=== PATIENT | female | born 1985 | race Caucasian/White ===

== ENCOUNTER → 2018-01-09 12:30 | Outpatient (CLI) | payer OTHER, SELFPAY | PROVIDERS: Family Provider Family Medicine; PCP Family Medicine; Visit Provider Physician Assistant Surgical | DX: J02.9 Acute pharyngitis, unspecified (principal) | CPT/HCPCS: 87081 ==

== ENCOUNTER → 2018-04-16 16:16 | Outpatient (CLI) | payer OTHER, SELFPAY ==
[2018-04-16 18:06] LABS: Thyroid Stim Hormone (TSH) 0.67 uIU/mL (0.358-3.74)
== END ==
LOC: BFHLAB 16:17
PROVIDERS: Family Provider Family Medicine; PCP Family Medicine; Visit Provider Orthopaedic Surgery
DX: R53.83 Other fatigue (principal)
CPT/HCPCS: 36415; 84443

== ENCOUNTER → 2018-05-07 08:02 | Outpatient (CLI) | payer OTHER, SELFPAY ==
[2018-05-07 12:41] LABS: Hemoglobin A1c 4.9 % (4.2-6.3)
[2018-05-07 12:45] LABS: AST(SGOT) 20 U/L (15-37); Alanine Aminotransfer ALT/SGPT 37 U/L (13-56); Albumin, Serum 3.3 g/dL (3.2-5.0); Alkaline Phosphatase 70 U/L (45-117); Anion Gap 7 (5-15); BUN 9 mg/dL (7-18); BUN/Creat Ratio 12.3 RATIO (10-20); Calcium,Total 8.3 mg/dL (8.5-10.1); Chloride 105 mmol/L (98-107); Cholesterol 167 mg/dL (200); Creatinine, Serum 0.73 mg/dL (0.55-1.02); EST Glomerular Filtration Rate 96 mL/min (>60); Est Glom Filt Rate - Afr Amer 116 mL/min (>60); Free T3 3.1 pg/mL (2.18-3.98); Globulin 3.4 g/dL (2.2-4.2); Glucose 95 mg/dL (74-106); High Density Lipoprotein 51 mg/dL; Potassium 3.8 mmol/L (3.5-5.1); Protein, Total 6.7 g/dL (6.4-8.2); Sodium Level 138 mmol/L (136-145); T4 Free Direct 1.98 ng/dL (0.76-1.46); Thyroid Stim Hormone (TSH) 0.81 uIU/mL (0.358-3.74); Triglycerides 125 mg/dL; Very Low Density Lipoprotein 25 mg/dL (5-40)
[2018-05-08 08:32] LABS: Insulin 23.8 mU/L (2.6-37.6); Vitamin B12 378 pg/mL (211-911); Vitamin D,25 Hydroxy 16.8 ng/mL (29.95-100.01)
[2018-05-11 14:07] LABS: Testosterone, % Free 3.96 % (0.50-2.80); Testosterone, Total 53 ng/dL (8-48)
[2018-05-12 10:28] LABS: DHEA Sulfate 208.2 ug/dL (57.3-279.2)
== END ==
LOC: BFHLAB 08:03
PROVIDERS: Family Provider Family Medicine; PCP Family Medicine; Visit Provider Family Medicine
DX: R53.83 Other fatigue (principal); R51 Headache; D68.51 Activated protein C resistance; R63.5 Abnormal weight gain; R73.9 Hyperglycemia, unspecified
CPT/HCPCS: 36415; 80053; 80061; 82306; 82533; 82607; 82627; 83036; 83525; 84402; 84403; 84439; 84443; 84481; 82626

== ENCOUNTER → 2018-06-02 11:14 | Outpatient (CLI) | payer OTHER, SELFPAY ==
[2018-06-02 15:38] LABS: Estradiol 70.4 pg/mL; Ferritin 69 ng/mL (8-252); Iron 93 ug/dL (50-170)
[2018-06-02 15:55] LABS: Hematocrit 40.2 % (37-47); Hemoglobin 13.1 g/dl (12.0-15.0); Red Blood Count 4.33 M/mm3 (4.2-5.4); White Blood Count 6.2 K/mm3 (4.4-11.0)
[2018-06-02 15:56] LABS: Absolute Lymphocyte Count 2.61 X10^3/ul (0.83-4.51); Basophil% 0.8 % (0-1); Eosinophil# 0.15 X10^3/uL; Eosinophils% 2.4 % (0-5); Lymphocyte # 2.61 X10^3/ul (4.0); Lymphocyte % 42.3 % (19-41); Mean Corp Hgb Conc 32.6 g/gl (32-36); Mean Corpuscular Hgb 30.3 pg (27.0-32.0); Mean Corpuscular Volume 92.8 fL (81-99); Mean Platelet Vol. 10.7 fl (6.2-12.0); Monocyte# 0.37 X10^3/uL; Neutrophil # 2.99 X10^3/uL (2.7-7.7); Neutrophil % 48.5 % (47-70); POSITIVE COUNT NO; POSITIVE DIFFERENTIAL NO; POSITIVE MORPHOLOGY NO; Platelet Count 290 K/mm3 (150-450); RBC Distribution Width CV 12.5 % (11.6-14.6); RBC Distribution Width SD 42.6 fl (35.1-43.9)
[2018-06-02 15:57] LABS: Basophil# 0.05 X10^3/uL
[2018-06-03 12:16] LABS: Progesterone Level 0.69 ng/mL (See Comment)
== END ==
LOC: LAB.FUTURE 11:16
PROVIDERS: Family Provider Family Medicine; PCP Family Medicine; Visit Provider Family Medicine
DX: N92.0 Excessive and frequent menstruation with regular cycle (principal); E28.2 Polycystic ovarian syndrome; D64.9 Anemia, unspecified
CPT/HCPCS: 36415; 82670; 82728; 83540; 84144; 85025

== ENCOUNTER → 2018-10-19 16:08 | Outpatient (CLI) | payer OTHER, SELFPAY ==
[2018-10-19 18:26] LABS: Calcium,Total 8.8 mg/dL (8.5-10.1)
== END ==
LOC: BFHLAB 16:10
PROVIDERS: Family Provider Family Medicine; PCP Family Medicine; Visit Provider Podiatrist Foot & Ankle Surgery
DX: S92.344A Nondisplaced fracture of fourth metatarsal bone, right foot, initial encounter for closed fracture (principal); E55.9 Vitamin D deficiency, unspecified
CPT/HCPCS: 36415; 82306; 82310

== ENCOUNTER → 2019-06-18 15:19 | Outpatient (CLI) | payer SELFPAY ==
[2018-12-10 08:00] VITALS: BMI 35.6
--- NOTE | 2019-06-18 15:26 | VDLE_ITS ---
Reason For Study: RT CALF PAIN RIGHT GSV is normal. CFV is compressible, spontaneous, phasic, competent and demonstrates normal augmentation. FV is compressible, spontaneous, phasic, competent and demonstrates normal augmentation. POP V is compressible, spontaneous, phasic, competent and demonstrates normal augmentation. T/P Trunk is compressible. PTV is compressible. RT PerV is compressible. Procedure Exam performed in department. A preliminary report was called and/or faxed to Dr Jama. Interpretation Summary Deep veins of the right lower extremity are patent and compressible segmentally. There is no evidence of right lower extremity deep vein thrombosis. Valvular competence appears intact within the proximal deep venous system on the right . The right great saphenous vein appears patent and compressible segmentally. Ordering Physician: Beronica Jama Referring Physician: KEVIN LANDERS Performed By: Annie Steven, MARYJANE, RVT
== END ==
LOC: CVS 15:23
PROVIDERS: Family Provider Family Medicine; PCP Family Medicine; Referring Provider Internal Medicine; Visit Provider Internal Medicine
DX: M79.661 Pain in right lower leg (principal)
CPT/HCPCS: 93971

== ENCOUNTER 2020-10-10 08:00 | Outpatient (RCR) | payer BC, SELFPAY ==
[2020-02-04 15:11] VITALS: BMI 31.1
== END 2020-10-10 23:59 ==
LOC: IMMUN 08:00
PROVIDERS: PCP Family Medicine; Visit Provider Family Medicine
DX: Z23 Encounter for immunization (principal)
CPT/HCPCS: 0011A; 0012A

== ENCOUNTER → 2021-01-16 09:45 | Outpatient (CLI) | payer BC, SELFPAY ==
[2020-02-04 15:11] VITALS: BMI 31.1
--- NOTE | 2021-01-16 09:48 | US_ITS ---
STUDY: THYROID ULTRASOUND REASON FOR EXAM: Female, 35 years old. ABN SERUM THYROXINE TECHNIQUE: Ultrasound evaluation of the thyroid was performed with real-time and static santiago-scale imaging. COMPARISON: None. FINDINGS: RIGHT LOBE: The right lobe of the thyroid gland is enlarged and measures 6 cm x 2.3 cm x 1.6 cm. There is a homogeneous echotexture. There is a 2 cm x 1.8 cm x 1.5 cm solid nodule in the lower pole. Intranodular vascularity is seen. Biopsy is recommended. LEFT LOBE: The left lobe of the thyroid gland is enlarged and measures 5.7 cm x 1.9 cm x 1.8 cm. There is a homogeneous echotexture. Normal small hypoechoic solid nodules scattered throughout the left lobe. The larger measures 5 mm x 4 mm x 3 mm. ISTHMUS: The isthmus measures 4 mm. The regional lymph nodes are normal. US/Thyroid IMPRESSION: Enlargement of the thyroid gland more prominent on the right side. There is a dominant 2 cm x 1.8cm x 1.5 cm solid nodule in the lower pole of the right lobe. Biopsy is recommended. Electronically Signed: Iván Pruitt MD at 13:29 EDT , Service support ,
== END ==
PROVIDERS: PCP Family Medicine; Referring Provider Nurse Practitioner; Visit Provider Nurse Practitioner
DX: E04.1 Nontoxic single thyroid nodule (principal)
CPT/HCPCS: 76536

== ENCOUNTER → 2021-01-29 | Outpatient (CLI) | payer BC, SELFPAY ==
[2020-02-04 15:11] VITALS: BMI 31.1
--- NOTE | 2021-01-29 | ASPS_PTH ---
PATIENT: JUANY FULLER LOC: [facility] U#:[id number] AGE/SX: 35/F ROOM: RE01/29/[address]: Dr. Jon Lema MD : 1985 BED: DIS: 01/29/2021 SPEC #: [id number] RECD: 01/29/21 13:19 STATUS: SABRINA RECarrie #: [id number] PETRONA: 01/29/21 00:[address]: Jon Lema DEPT: CYTOLOGY RECD BY: Gianni Heart ENTERED: 01/29/21 13:19 SP TYPE: ASPIRATION OTHR DR: Kole Bingham Tissues: Thyroid gland, NOS Procedures: Special Stain Group II Cytology Other HEADER OPERATION: Ultrasound-guided right thyroid fine needle aspiration PRE-OP DIAGNOSIS: Thyroid nodule TISSUE SUBMITTED: Right thyroid FNA slides x12 DIAGNOSIS CYTOLOGY Right thyroid nodule, ultrasound-guided FNA (smears): Suspicious for follicular neoplasm. Adequate for evaluation. See comment. SJ:johanne 01/30/2021 COMMENT The smears are cellular and shows microfollicle formation. Correlation with clinical, radiologic findings and appropriate follow up are necessary. CYTOLOGY STUDY Slides are reviewed. CYTOLOGY GROSS Received are 12 smears labeled with the patient's name and designated per the requisition as right thyroid. Submitted for staining. / johanne 01/29/2021 TC:5 CPT: 17041
== END | disposition home or self-care (01) ==
LOC: LAB 12:38 → LABSPEC 12:39
PROVIDERS: PCP Family Medicine; Referring Provider Surgery; Visit Provider Surgery
DX: E04.1 Nontoxic single thyroid nodule (principal)
CPT/HCPCS: 88161; 88313

== ENCOUNTER 2021-03-16 12:26 | Day surgery (SDC) | payer BC, SELFPAY ==
[2020-02-04 15:11] VITALS: BMI 31.1
--- NOTE | 2021-03-08 15:21 | NURSING ---
Attempting to contact pt via phone for PAT phone call appt. Cell phone listed is no longer a working number. Work phone listed: work place states pt doen't work there any more. This RN contacted Antonella at Dr Lema's office who states she will reach out to pt's emergency contact. Antonella states she will notify PAT with what she discovers.
[2021-03-16] VITALS (10 sets, daily range): BP systolic 109–126; BP diastolic 61–97; PULSE 55–83; RESP 16–65; TEMP 36–36.6; O2SAT 97–100; BMI 33.9
--- NOTE | 2021-03-16 | THYROID_PTH ---
PATIENT: JUANY FULLER LOC: [facility] [place] U#:[id number] AGE/SX: 35/F ROOM: RE03/16/[address]: Dr. Jon Lema MD : 1985 BED: DIS: 03/17/2021 SPEC #: [id number] RECD: 03/19/21 07:28 STATUS: SABRINA RECarrie #: [id number] PETRONA: 03/16/21 00:[address]: Jon Lema DEPT: SURGICAL PATHOLOGY RECD BY: Gianni Heart ENTERED: 03/19/21 08:07 SP TYPE: THYROID OTHR DR: Dr. 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 Multinodular goiter. See comment. SJ:johanne 03/20/2021 COMMENT The tumor shows well-defined capsule. Invasion into the capsule is noted, however, invasion through the capsule is not seen. Immunohistochemistry ([id number]) supports the above diagnosis. Please make reference to previous specimen ([id number]), right thyroid nodule, ultrasound-guided FNA with diagnosis of ?suspicious for follicular neoplasm.? Case has been reviewed in consultation with Dr. Acosta who concurs with the above diagnosis. IDC:AM MICROSCOPIC DESCRIPTION Slides are reviewed. GROSS DESCRIPTION Received in fixative is one container labeled with the patient's name and designated thyroid. The specimen consists of a total thyroidectomy specimen weighing 26.7 gm. The right thyroid lobe measures 5.5 x 2.5 x 3 cm and left thyroid lobe measures 5 x 2 x 2 cm and the isthmus measures 1.5 x 0.5 x 0.5 cm. No external parathyroid tissue is identified. The specimen is inked as follows: posterior surface right lobe, left lobe and isthmus - black, anterior surface right lobe - blue, anterior surface left lobe - green, anterior surface isthmus - yellow. Serial sections reveal a circumscribed, encapsulated hernandez-white nodule in the lower portion of the thyroid lobe measuring 1.5 cm in diameter. Sections of the left lobe and isthmus do not reveal any obvious mass lesion. Set Up Operator Tool sections are submitted in 15 cassettes as follows: 1 - isthmus, entirely submitted, 2-9 - right lobe (2 containing most superior portion and 9 containing most inferior portion, 6-9 contains the nodule with surrounding uninvolved thyroid tissue, nodule is submitted in entirety), 10-15 - left lobe (10 containing most superior portion and 15 containing most inferior portion). / SJ:johanne 03/19/21 TC:1 CPT: 83119
--- NOTE | 2021-03-16 | IMM_PTH ---
PATIENT: JUANY FULLER [place] [facility] [id number] AGE/SX: 35/F ROOM: RE03/16/[address]: Dr. Jon Lema MD : 1985 BED: DIS: 03/17/2021 SPEC #: [id number] RECD: 03/20/21 13:27 STATUS: SABRINA RECarrie #: [id number] PETRONA: 03/16/21 00:[address]: Jon Lema DEPT: IMMUNOHISTOCHEMISTRY RECD BY: Fabiana Gillespie ENTERED: 03/20/21 13:28 SP TYPE: IMMUNO OTHR DR: Dr. Beronica Jama, Tissues: Thyroid gland, NOS Procedures: HBME (initial) CD56 (add) CK19 (add) GAL-3 (add) PHYSICIAN & INSTITUTION [place] [id number] SPECIMEN INFORMATION: Tissue Source: Thyroid, total thyroidectomy Clinical Info: Multinodular goiter, hyperthyroidism Specimen Number: [id number] #7 CPT code: 12713, 45463 x3 METHODOLOGY: Deparaffinized sections of prefer/formalin-fixed tissue or PAP/DQ stained slides are incubated with monoclonal/polyclonal antibodies/oligonucleotide probes. Localization is made via biotin free immunoperoxidase method. Appropriate controls are performed and reacted as expected. Results on target cell population are indicated in the following table: RESULTS: ANTIBODY / CLONE RESULT Block 7 HBME1 (HBME-1) positive CK19 (A53-B/A2.26) positive, focal GAL3 (9C4) negative CD56 (123C3.D5) positive, focal These tests were developed and their performance characteristics determined by [facility]. They may not have been cleared or approved by the U.S. Food and Drug Administration. The FDA has determined that such clearance or approval is not necessary. The above immunohistochemical/dualISH markers are ordered and reviewed by the Pathologist. INTERPRETATION: Thyroid, total thyroidectomy: Consistent with encapsulated follicular adenoma. SJ:johanne 03/21/2021 Case has been reviewed in consultation with Dr. Acosta who concurs with the above diagnosis. IDC:[email or web address]
[2021-03-16 12:48] LABS: Internal QC Validated? YES +Cl - CLEAR BKGD
[2021-03-16 12:51] LABS: Pregnancy, Urine Negative Negative
[2021-03-16] MEDS: Lactated Ringers 1,000 ML 100 ML IV ×2 (13:32→15:45)
[2021-03-16 13:44] LABS: Hematocrit 42.8 % (37-47); Hemoglobin 14.3 g/dL (12.0-15.0); Mean Corp Hgb Conc 33.4 g/dL (32-36); Mean Corpuscular Hgb 31.1 pg (27.0-32.0); Mean Platelet Vol. 10.3 fl (6.2-12.0); Platelet Count 337 K/mm3 (150-450); RBC Distribution Width CV 12.2 % (11.6-14.6); White Blood Count 10.2 K/mm3 (4.4-11.0)
[2021-03-16 13:52] LABS: Partial Thromboplast Time 25.1 Seconds (24.1-36.2)
[2021-03-16 13:58] LABS: AST(SGOT) 15 U/L (15-37); Alanine Aminotransfer ALT/SGPT 28 U/L (13-56); Albumin, Serum 3.5 g/dL (3.2-5.0); Alkaline Phosphatase 86 U/L (45-117); Bilirubin, Direct 0.18 mg/dL (0.00-0.30); Globulin 3.1 g/dL (2.2-4.2); Protein, Total 6.6 g/dL (6.4-8.2)
[2021-03-16] MEDS: Cefazolin 2 GM in 0.9% Normal Saline 100 ML IV (14:17)
[2021-03-16] MEDS: BUPIVACAINE LIPOSOME/PF 20 ML VIAL OPERA.SITE (15:34)
--- NOTE | 2021-03-16 15:34 | OP.PCM_ITS ---
Problems Associated Problem List Diagnoses (1) Multinodular goiter (nontoxic): (2) Hyperthyroidism: Report of Operation Date of Procedure: 03/16/21 Pre-Operative Diagnosis: 1. Multinodular goiter 2. Hyperthyroidism Post-Operative Diagnosis: Same Surgery/Procedure Performed:: Total thyroidectomy Surgeon: Jon Lmea regional branch manager: Sylvester Mckeon Type of Anesthesia: General Anesthesiologist: Irvin Maddox Specimen's removed: Total thyroid Estimated Blood Loss (mL): < 25 cc Description of Procedure: Patient was brought in the operating room. Placed in the supine position. Under excellent general tracheal ovation the neck was s terilely prepped and draped in usual fashion. Local was injected. Cervical incision was made. Dissection was carried down with electrocautery. Subplatysmal flaps were created with use of electrocautery. Gelpi retractor was placed inside the wound. Midline strap muscles were opened up. I dissected down I started on the left side going to the superior pole vessels first I took these down with her mono dissector came to the middle thyroidal vein took this down with a demonic dissector and finally the inferior parathyroid vessels with the harmonic dissector. I rotated the gland from lateral to medial standpoint to identify both the superior and inferior parathyroid gland was able to spare them without difficulty. Took the gland off of Novak's ligaments and identified the recurrent laryngeal nerve on the left side. As I rotated the gland off of the trachea and going to the right side I once again went superiorly into the superior pole vessels down middle thyroidal vein down and then inferiorly on the inferior thyroid vessels I was able to identify the inferior and superior parathyroid glands and spared both of them. I rotated the gland from a lateral medial standpoint once again identified the recurrent laryngeal nerve this time it was very small and very close to the gland but I was able to remove the thyroid without injury. I took the gland off the various ligaments I inspected it I did not see any tissue that look like parathyroid tissue I reinspected my parathyroid they all look like they had good blood supply. I placed FloSeal into the operating bed. Midline strap muscles were brought together with a 2-0 Vicryl deep dermal stitches of 3-0 Vicryl in a running 4-0 Monocryl. Dermabond was applied sterile dressings were applied and the patient tolerated the p rocedure well. Admit VTE Documentation VTE Present on Admission: No VTE Mechan Device Prophylaxis: SCD's VTE Pharm Prophylaxis ordered?: No Reason prophylaxis not ordered:: Treatment Not Indicated
[2021-03-16] MEDS: 0.9% Normal Saline 1,000 ML 70 ML IV (17:03)
[2021-03-16] MEDS: Calcium Carbonate 500 MG Tablet 1000 MG PO (18:29)
[2021-03-16 18:43] LABS: Calcium,Total 8.4 mg/dL (8.5-10.1)
[2021-03-16] MEDS: oxyCODONE 5 MG Tablet PO (20:19)
[2021-03-16] MEDS: Propranolol 10 MG Tablet PO (22:14)
[2021-03-16 22:42] LABS: Calcium,Total 8.6 mg/dL (8.5-10.1)
[2021-03-17] MEDS: oxyCODONE 5 MG Tablet PO ×3 (01:43→11:45)
[2021-03-17 01:46] VITALS: BP 110/73; PULSE 63; RESP 16; TEMP 36.3; O2SAT 97
[2021-03-17 05:38] VITALS: BP 108/71; PULSE 58; RESP 16; TEMP 36.6; O2SAT 97
[2021-03-17] MEDS: 0.9% Normal Saline 1,000 ML 70 ML IV (05:51)
[2021-03-17] MEDS: Levothyroxine 100 MCG Tablet PO (05:52)
[2021-03-17 06:50] VITALS: BP 121/61; PULSE 56
[2021-03-17 07:14] LABS: Calcium,Total 8.6 mg/dL (8.5-10.1)
[2021-03-17] MEDS: Calcium Carbonate 500 MG Tablet 1000 MG PO ×2 (07:40→11:25)
[2021-03-17] MEDS: DULoxetine Hcl 30 MG Capsule PO (09:19)
[2021-03-17] MEDS: Loratadine 10 MG Tablet PO (09:20)
[2021-03-17] MEDS: Propranolol 10 MG Tablet PO (09:20)
--- NOTE | 2021-03-17 10:53 | PCM.PN.SRG ---
Subjective Subjective Pain is well controlled. Swallowing without difficulty. Objective Data Objective Data Incisions clean no signs of hematoma or bruising Vital Signs: Vital Signs Temp Pulse Resp BP Pulse Ox 97.9 F 56 L 16 121/61 H 97 03/17/21 05:38 03/17/21 06:50 03/17/21 05:38 03/17/21 06:50 03/17/21 05:38 Oxygen Delivery Method Room Air Weight: 210 lb 5.136 oz Body Mass Index (BMI) 33.9 Intake & Output: Intake and Output for Last 24 Hours 03/15/21 03/16/21 03/17/21 23:59 23:59 23:59 Intake Total 3170 / 3170 2013.5 / 2013.5 Output Total 300 / 300 800 / 800 Balance 2870 / 2870 1214.5 / 1214.5 Lab / Micro Data Result Diagrams: 03/16/21 13:20 Labs: Laboratory Results - last 24 hr 03/16/21 03/16/21 03/16/21 12:40 13:20 13:20 WBC 10.2 RBC 4.60 Hgb 14.3 Hct 42.8 MCV 93.0 MCH 31.1 MCHC 33.4 RDW Std Deviation 42.0 RDW Coeff of Glenda 12.2 Plt Count 337 MPV 10.3 PT 13.0 INR 1.0 APTT 25.1 Calcium Total Bilirubin Direct Bilirubin AST ALT Alkaline Phosphatase Total Protein Albumin Globulin Urine Test Negative 03/16/21 03/16/21 03/16/21 13:20 18:03 22:13 WBC RBC Hgb Hct MCV MCH MCHC RDW Std Deviation RDW Coeff of Glenda Plt Count MPV PT INR APTT Calcium 8.4 L 8.6 Total Bilirubin 0.70 Direct Bilirubin 0.18 AST 15 ALT 28 Alkaline Phosphatase 86 Total Protein 6.6 Albumin 3.5 Globulin 3.1 Urine Test 03/17/21 06:25 WBC RBC Hgb Hct MCV MCH MCHC RDW Std Deviation RDW Coeff of Glenda Plt Count MPV PT INR APTT Calcium 8.6 Total Bilirubin Direct Bilirubin AST ALT Alkaline Phosphatase Total Protein Albumin Globulin Urine Test Assessment & Plan Assessment/Plan (1) Hyperthyroidism: (2) Multinodular goiter (nontoxic): PLAN: For discharge today.
--- NOTE | 2021-03-17 11:02 | DCINST_ITS ---
Discharge Instructions Procedure General Surgery Diet Discharge Diet: Light diet - advance as tolerated (If you have questions about your diet instructions, please talk to your doctor.) Activity Discharge Activity: May Not Drive (for 1 week or while taking narcotic pain medicine.) May shower in (days): 1 Lifting Restrictions: 10 pounds Dressing / Incision Call your doctor if your incision/area has: Continuous Slow Oozing, Sudden Increased Bleeding, Increased Pain/ Swelling, Increased Redness and Foul Smelling Discharge Call your doctor if you observe: Fever of 101 or Higher Suture Line Care: Avoid Pulling/Pushing and Avoid Pinching/Bending Additional Dressing/Incision Instructions:: Change or remove dressing in 4 days. Leave steri-strips in place for 1 week. Follow Up Care Please Follow Up With: Kathryn Pond PA-C When: Call office to schedule an appointment to be seen in about 10 days. Test Results: Test results from this visit will be discussed in further detail at your follow-up appointment, if applicable. Discharge Plan Admission Attending Provider: Jon Lema Primary Care Provider: Beronica Jama Discharge Orders/Prescriptions Prescriptions: New levothyroxine [Levoxyl] 100 mcg tablet 100 mcg PO DAILY 30 Days Qty: 30 RF: 12 oxycodone-acetaminophen [Percocet] 5-325 mg tablet 1 tab PO Q4H PRN (Reason: pain) 5 Days Qty: 20 RF: 0 Continued duloxetine 30 mg capsule, delayed rel sprinkle 30 mg PO DAILY RF: 0 dextroamphetamine-amphetamine [Adderall] 10 mg tablet 10 mg PO DAILY RF: 0 albuterol sulfate [Ventolin HFA] 90 mcg/actuation HFA aerosol inhaler 1 inh INHALATION PRN PRN (Reason: sob) RF: 0 cetirizine [Zyrtec] 10 mg tablet 10 mg PO DAILY RF: 0 Mirena 20 mcg/24 hours (6 yrs) 52 mg Intrauterine Device 20 mcg INTRAUTERINE DAILY RF: 0 propranolol 10 mg Tablet 10 mg PO BID RF: 0 alprazolam 0.5 mg tablet RF: 0 Referrals / Follow Up: Beronica Jama DO [Primary Care Provider] - Kathryn Pond PA-C [PHYSICIAN READING INSTRUCTOR] - Disposition Discharge Orders: Discharge Patient (Routine); Ordered 03/17/21 Ordered By: Dr. Jon Lema
== END 2021-03-17 13:25 ==
LOC: SDC 12:26 → AC 12:27 → MS3 03-19 11:41
PROVIDERS: Anesthesiology; PCP Internal Medicine; Referring Provider Surgery; Visit Provider Surgery
PROC: (CPT 60240; principal; 2021-03-16 14:15)
DX: E05.20 Thyrotoxicosis with toxic multinodular goiter without thyrotoxic crisis or storm (principal); F41.9 Anxiety disorder, unspecified; M19.90 Unspecified osteoarthritis, unspecified site; J45.909 Unspecified asthma, uncomplicated; Z79.899 Other long term (current) drug therapy; Z86.718 Personal history of other venous thrombosis and embolism; F32.9 Major depressive disorder, single episode, unspecified; D68.51 Activated protein C resistance; K21.9 Gastro-esophageal reflux disease without esophagitis; Z87.891 Personal history of nicotine dependence
CPT/HCPCS: 00320; 60240; 36415; 80076; 81025; 82310; 85027; 85610; 85730; 88307; 88341; 88342; 99251; J7030; J7120; G0463; J2405

== ENCOUNTER → 2023-04-28 | Outpatient (CLI) | payer BC, SELFPAY ==
[2023-04-28 18:38] LABS: CRP < 2.90 mg/L (0.0-3.0)
[2023-04-30 16:09] LABS: Endomysial Antibody IgA Negative (Negative); Immunoglobulin A 140 mg/dL (87-352); t-Transglutaminase IgA <2 U/mL (0-3)
== END | disposition home or self-care (01) ==
PROVIDERS: Referring Provider Internal Medicine Gastroenterology; Visit Provider Internal Medicine Gastroenterology
DX: R19.7 Diarrhea, unspecified (principal); R10.9 Unspecified abdominal pain
CPT/HCPCS: 36415; 82784; 83516; 86140; 86255

== ENCOUNTER → 2023-05-01 | Outpatient (CLI) | payer BC, SELFPAY ==
[2023-05-01 10:34] LABS: AST(SGOT) 15 U/L (15-37); Alanine Aminotransfer ALT/SGPT 18 U/L (13-56); Albumin, Serum 3.4 g/dL (3.2-5.0); Alkaline Phosphatase 51 U/L (45-117); Bilirubin, Direct 0.16 mg/dL (0.00-0.30); Globulin 3.6 g/dL (2.2-4.2); Lipase 32 U/L (13-75)
== END | disposition home or self-care (01) ==
LOC: MTLAB 09:00
PROVIDERS: Visit Provider Internal Medicine Gastroenterology
DX: R10.9 Unspecified abdominal pain (principal); R11.0 Nausea
CPT/HCPCS: 36415; 80076; 83690

== ENCOUNTER → 2023-06-09 | Outpatient (CLI) | payer BC, SELFPAY ==
--- NOTE | 2023-06-09 12:53 | CT_ITS ---
STUDY: CT CHEST, ABDOMEN T PELVIS WITH CONTRAST REASON FOR EXAM: Female, 38 years old. ABD PAIN, ABN WT LOSS, GERD RADIATION DOSAGE (If Supplied By Facility): CTDIvol = ( 12.37 ) mGy, DLP = ( 1519.37 ) mGycm TECHNIQUE: Transaxial imaging was performed following intravenous administration of Oral and amp; IV Readi-CAT and amp; 100mL Isovue-300. Individualized dose optimization techniques were used for this CT. COMPARISON: No prior examinations are available for comparison. FINDINGS: CHEST Focal pleural-based density in the superior segment of the right lower lobe could be due to infiltrate or scarring. 8 mm pleural-based right lower lobe nodule seen on image 91 of series 8. Small pleural-based left lower lobe nodular changes. No evidence of pleural effusions. Normal heart and pericardium. Normal mediastinum. Normal hilar regions. No evidence of pulmonary embolism on this examination. Normal aorta arch and descending thoracic aorta. Osseous structures are essentially unremarkable. ABDOMEN Normal liver. Normal gallbladder and extrahepatic biliary system. Normal spleen. Normal pancreas. Normal bilateral adrenal glands. 1.6 cm simple cyst in the upper pole of the right kidney for which no further follow-up exam is needed. Normal left kidney. Normal visualized stomach. Normal small intestine. Narrowing of the descending colon likely due to underdistention. No evidence of acute diverticulitis. The appendix is visualized and appears normal. Normal abdominal aorta. Normal inferior vena cava. Normal retroperitoneum. PELVIS Normal urinary bladder. There is no pelvic fluid. IUD in place. Follicles in the left ovary. Normal visualized pelvic arteries. No discrete abdominal wall hernia. Degenerative changes at the level of L5-S1. CT/CT Chest, Abd, Pel w/Contrast IMPRESSION: 1. Pleural-based right lower lobe nodular density for which follow-up exam in 3 months or correlation with PET scan is recommended according to Fleischner Society recommendation. 2. Focal opacity or scarring in the right lower lobe. 3. No focal acute inflammatory process in the abdomen. Electronically Signed: Johnathan Adams MD at 15:59 EDT ,
== END | disposition home or self-care (01) ==
DX: R10.13 Epigastric pain (principal); R63.4 Abnormal weight loss; K21.9 Gastro-esophageal reflux disease without esophagitis
CPT/HCPCS: 71260; 74177; Q9967